=== PATIENT | female | born 2000 | race African-American/Black ===

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

== ENCOUNTER 2021-03-03 13:29 | Outpatient (CLI) | payer OTHER | END 2021-03-03 13:30 | disposition home or self-care (01) | LOC: BICULT 13:29 | PROVIDERS: ATTEND Family Medicine | DX: Z34.83 Encounter for supervision of other normal pregnancy, third trimester (principal); Z3A.28 28 weeks gestation of pregnancy | CPT/HCPCS: 76805 ==